=== PATIENT | female | born 1970 | race Caucasian/White ===

== ENCOUNTER → 2018-07-21 | Outpatient (CLI) | payer BC ==
[~2018-07-21] MED LIST: CEPH500 PO; Ferrous Sulfat325 MG PO; NITR100CA PO; RANI150 PO
== END | disposition home or self-care (01) ==
LOC: LAB SHORT 12:00 → LAB EV 12:00
DX: N39.0 Urinary tract infection, site not specified (principal)
CPT/HCPCS: 87077; 87086; 87186

== ENCOUNTER 2019-05-14 16:21 | Emergency (ER) | payer SELFPAY ==
[~2019-05-14] VITALS: Ht 167.6 cm; Wt 62.1 kg
[2019-05-14] MEDS ORDERED: BENZ100A PO (17:01)
[2019-05-14] MEDS ORDERED: ROBITUSSIN COU237 ML PO (17:01)
== END 2019-05-14 17:08 | disposition home or self-care (01) ==
LOC: ER 16:21
DX: J11.1 Influenza due to unidentified influenza virus with other respiratory manifestations (principal); Z88.1 Allergy status to other antibiotic agents; Z88.5 Allergy status to narcotic agent; F17.210 Nicotine dependence, cigarettes, uncomplicated
CPT/HCPCS: 87081; 87430; 93005; 93010; 99283-25

== ENCOUNTER 2019-05-20 09:52 | Emergency (ER) | payer SELFPAY ==
[~2019-05-20] VITALS: Ht 167.6 cm; Wt 62.1 kg
[~2019-05-20 09:52] MED LIST changes: +BENZ100A PO; +ROBITUSSIN COU237 ML PO
[2019-05-20] MEDS ORDERED: ALBU90OI INH (10:55)
[2019-05-20] MEDS ORDERED: Zithromax250 MG PO (10:55)
== END 2019-05-20 11:23 | disposition home or self-care (01) ==
LOC: ER 09:52
DX: J18.9 Pneumonia, unspecified organism (principal); F17.200 Nicotine dependence, unspecified, uncomplicated
CPT/HCPCS: 71046

== ENCOUNTER 2019-05-25 11:07 | Emergency (ER) | payer SELFPAY ==
[~2019-05-25] VITALS: Ht 167.6 cm; Wt 63.5 kg
[~2019-05-25 11:07] MED LIST changes: +ALBU90OI INH; +Zithromax250 MG PO
[2019-05-25] MEDS ORDERED: IBUP600 PO ×2 (12:12→12:25)
== END 2019-05-25 12:27 | disposition home or self-care (01) ==
LOC: ER 11:07
DX: M54.6 Pain in thoracic spine (principal); F17.200 Nicotine dependence, unspecified, uncomplicated; Z88.5 Allergy status to narcotic agent; Z79.899 Other long term (current) drug therapy
CPT/HCPCS: 71046; 99283-25